=== PATIENT | male | born 1995 | race Caucasian/White ===

== ENCOUNTER → 2016-10-12 | Outpatient (CLI) | payer OTHER ==
[~2016-10-12] MED LIST: GADAVIST IV PRN
--- NOTE | 2016-10-12 12:10 | DIAGNOSTIC IMAGING REPORT ---
MRI OF THE BRAIN WITHOUT AND WITH IV CONTRAST CLINICAL HISTORY: MUSCLE TWITCHING, R/O MS, LESION OF THE BRAIN COMPARISON STUDY: No previous studies for comparison. TECHNIQUE: Utilizing a 1.5 Loren magnet and dedicated coil, multiplanar, multiecho imaging of the brain was performed pre and postcontrast administration. IV administration of 8.5 mL of Gadavist contrast was uneventful. Thin cut imaging was performed as per the multiple sclerosis protocol. FINDINGS: There are no areas of restricted diffusion. No acute intracranial hemorrhage, midline shift or mass effect is present. Ventricular system is normal. Basilar cisterns are patent. There are no extra-axial collections. Flow-voids for the major intracranial vessels are present. There are no intracranial masses or areas of pathologic enhancement. There is a developmental venous anomaly within the left cerebellar hemisphere which is of no clinical significance. There is mild polypoid mucosal thickening of the right maxillary sinus. No areas of signal abnormality are present. IMPRESSION: Unremarkable MRI of the brain. Electronically signed by: Chapo Kelly M.D. 10/12/2016 12:09 PM Dictated Date/Time: 10/12/2016 12:05 PM
== END | disposition home or self-care (01) ==
LOC: C.MRIBC 08:32
PROVIDERS: ATTEND Family Medicine
DX: R25.3 Fasciculation (principal)